=== PATIENT | male | born 1990 | race Caucasian/White ===

== ENCOUNTER 2016-10-18 17:17 | Emergency (ER) | payer OTHER ==
[~2016-10-18] VITALS: Ht 167.6 cm; Wt 65.9 kg
[~2016-10-18 17:17] MED LIST: NOMED
[2016-10-18 17:18] VITALS: BP 154/76; PULSE 99; RESP 16; O2SAT 100
--- NOTE | 2016-10-18 18:25 | ED.REPORT ---
HPI-Extremity Problem Upper Date of Service Oct 18, 2016 ED Provider: Claudia Hurley History of Present Illness: cut right hand with cup while doing dishes this evening at home. unknown tdap. 11/22. right hand dominant. primary care is no one. Nursing Notes Stated Complaint: CUT Chief Complaint: Laceration Nursing Notes Reviewed: Yes Allergies: Coded Allergies: No Known Allergies (Unverified Allergy, Unknown, 10/18/16) Miscellaneous Medications No Historical Medication (No Historical Medication) Ea General Time Seen by MD: 18:24 Chief Complaint Finger injury right 1 Hx Obtained From: Patient Onset Occurred: Just prior to arrival Symptom Duration: Since onset Location: : Finger right 1 Past Medical History Past Medical History Denies: Asthma, Diabetes mellitus Past Surgical History wisdoom teeth Smoking History Former Smoker (quit 7 years ago) Social History Alcohol Use: "Social" Drug Use: THC Other Social History: Occupation lives with roommates, single work at [employer] in [place] 10/18/2016 Ambulatory Status Independent Review of Systems Basic Review of Systems Eyes: Vision NL, No discharge : No dysuria, No frequency Psychiatric: Normal thought content Physical Exam Initial Vital Signs Vital Signs (First) Date Time Temp Pulse Resp B/P Pulse Ox O2 Delivery O2 Flow Rate FiO2 10/18/16 17:18 36.7 99 16 154/76 100 Room Air Initial VS: Reviewed, Vital signs normal General/Constitutional: Well-developed, Well-nourished Head / Eyes: Atraumatic, Normocephalic, PERRL ENT: Mucous membranes moist, Conjunctiva normal, No scleral icterus Neck: Supple, Non-tender, Full range of motion Respiratory: Breath sounds normal, Clear to auscultation, No respiratory distress Cardiovascular: Regular rate & rhythm, Heart sounds normal, Intact distal pulses Abdomen / GI: Soft, Non-tender, No guarding, No rebound, No distention Back: No CVA tenderness Lymphatic: No lymphadenopathy Lower Extremities: Vascular intact, Neuro intact, No swelling, No tenderness Skin: Warm, Dry, No cyanosis Neurologic: Alert, Oriented, Nonfocal Psychiatric: Mood/affect normal, Behavior normal, Normal thought content General/Constitutional: Awake, Alert, No acute distress, Well appearing, Well developed, Well hydrated, Well nourished, Cooperative, Not toxic appearing Respiratory / Chest: Atraumatic, Breath sounds NL, Breath sounds = bilat, No respiratory distress Cardiovascular: Heart rate NL, Regular rhythm, Heart sounds NL, No gallop, No murmurs, No rubs, Cap refill not delayed Upper Extremity / MS: Atraumatic, Inspection NL, Full range of motion, No swelling flap laceration times 2 on dorsum of hand. no active bleeding. full range of motion, sensation intact distally. cap refill less than 2 sec Procedures Laceration Management Laceration Management: 2 flaps, one is rectangular and has a thick flap, the other is small and triangle in shape with thin dermis Time: 18:45 Procedure Performed by: Allied health pract Consent / Setup / Site Prep: Informed consent provided, Consent from patient , Hand hygiene observed, Stand sterile technique Location of Wound: right dorsum of hand Wound Length: 6 cm Local Anesthesia: Lidocaine 1%, 5cc, 27g needle Digital Block: No Wound Preparation: Normal saline Debridement: None Irrigation: 250 cc Undermining / Margins: Flaps aligned Repair Skin: ___ O (5), Nylon # Sutures - Skin: 13 Closure Layers: 1 Suture Technique: Simple Post-Procedure / Complications: Antibiotic oint applied, Dressing applied, No complications, Condition improved, Tolerated procedure well, Patient stable Re-Eval/Medical Decision Med Decision/Clinical Course 26 year old male presents to the ER for closure of a laceration which occured just prior to arrival. Patient has full range of motion of fingers and wrist. Sensation intact distally, cap refill less than 2 sec.The larger flap has a thicker base, the small flap has thin dermis. Wound is repaired with all flaps aligned. Discharge & Departure Impression: Primary Impression: Laceration Disposition: Home Patient Instructions: Laceration (ED) Additional Instructions: The laceration had 2 flaps, one rectangular and one small one like a triangle. The flaps have been aligned and 13 sutures were placed. You have been updated on your tdap. Keep dry for 24 hours, briefly wet after that. Use bacitracin to the wound daily. Sutures out here in 14 days. Can use hydrocodone 1 at night as needed for severe unrelenting pain. # 10. Ibuprofen 600 mg up to 3 times a day for daytime pain. Return if redness, or red streaking or any other concerns. Do not use rubbing alcohol or hydrogen peroxide on the wound. Use only bacitracin. I am sorry you were injured this evening. Referrals: [facility] EDSupervising Provider for APC: Marin Chris DO copies to: [facility] Claudia Hurley Oct 18, 2016 18:25
[2016-10-18] MEDS ORDERED: TdaP Vaccine 0.5 mL Inj IM ONE (18:40)
[2016-10-18 20:06] VITALS: BP 130/73; PULSE 95; O2SAT 98
== END 2016-10-18 20:07 | disposition home or self-care (01) ==
LOC: SED 17:17
DX: S69.91XA Unspecified injury of right wrist, hand and finger(s), initial encounter (principal); W26.8XXA Contact with other sharp object(s), not elsewhere classified, initial encounter; Y93.G1 Activity, food preparation and clean up; Y92.000 Kitchen of unspecified non-institutional (private) residence as the place of occurrence of the external cause; Y99.8 Other external cause status; Z87.891 Personal history of nicotine dependence; Z23 Encounter for immunization